=== PATIENT | male | born 1955 | race Caucasian/White ===

== ENCOUNTER → 2024-09-20 12:59 | Outpatient (REF) | payer MEDICARE, SELFPAY | LOC: RAD 12:59 | PROVIDERS: ATTENDING PHYSICIAN Specialist; FAMILY PHYSICIAN Family Medicine | DX: R79.89 Other specified abnormal findings of blood chemistry (principal) | CPT/HCPCS: 76700 ==

== ENCOUNTER 2024-11-13 06:19 | Day surgery (SDC) | payer MEDICARE, SELFPAY | END 2024-11-13 15:54 | disposition home or self-care (01) | LOC: GI 06:19 | PROVIDERS: ATTENDING PHYSICIAN Specialist | DX: K50.90 Crohn's disease, unspecified, without complications (principal); K57.30 Diverticulosis of large intestine without perforation or abscess without bleeding; Z98.0 Intestinal bypass and anastomosis status | CPT/HCPCS: 45380; 88305 ==

== ENCOUNTER → 2024-11-28 14:08 | Outpatient (REF) | payer MEDICARE, SELFPAY | LOC: MRI 3T 14:08 | PROVIDERS: ATTENDING PHYSICIAN Specialist; FAMILY PHYSICIAN Family Medicine | DX: K50.00 Crohn's disease of small intestine without complications (principal) | CPT/HCPCS: 72197; 74183; A9575 ==